=== PATIENT | female | born 1990 | race Caucasian/White ===

== ENCOUNTER → 2025-04-01 07:03 | Outpatient (REF) | payer BC, SELFPAY | LOC: PNTC 07:03 | PROVIDERS: ATTENDING PHYSICIAN Obstetrics & Gynecology | DX: Z36.0 Encounter for antenatal screening for chromosomal anomalies (principal); Z36.82 Encounter for antenatal screening for nuchal translucency | CPT/HCPCS: 76801; 76813 ==

== ENCOUNTER → 2025-07-03 14:05 | Outpatient (REF) | payer BC, SELFPAY | LOC: RAD 14:05 | PROVIDERS: ATTENDING PHYSICIAN Obstetrics & Gynecology; FAMILY PHYSICIAN Family Medicine | DX: I87.2 Venous insufficiency (chronic) (peripheral) (principal) | CPT/HCPCS: 93971 ==

== ENCOUNTER → 2025-08-18 08:38 | Outpatient (REF) | payer BC, SELFPAY | LOC: PNTC 08:38 | PROVIDERS: ATTENDING PHYSICIAN Obstetrics & Gynecology | DX: O09.523 Supervision of elderly multigravida, third trimester (principal); O43.193 Other malformation of placenta, third trimester; O34.211 Maternal care for low transverse scar from previous cesarean delivery | CPT/HCPCS: 76816 ==